=== PATIENT | male | born 1990 | race Caucasian/White ===

== ENCOUNTER 2017-08-20 11:20 | Emergency (ER) | payer MEDICAID ==
[~2017-08-20] VITALS: Ht 185.4 cm; Wt 104.5 kg
[2017-08-20 14:56] VITALS: BP 127/76
== END 2017-08-20 15:02 | disposition home or self-care (01) ==
LOC: EMS 11:27
DX: S93.401A Sprain of unspecified ligament of right ankle, initial encounter (principal); R03.0 Elevated blood-pressure reading, without diagnosis of hypertension; X50.1XXA Overexertion from prolonged static or awkward postures, initial encounter; Y93.89 Activity, other specified; Y92.89 Other specified places as the place of occurrence of the external cause; Y99.8 Other external cause status
CPT/HCPCS: 29515; 99284